=== PATIENT | male | born 1990 ===

== ENCOUNTER → 2023-02-23 10:21 | Outpatient (CLI) | payer OTHER, SELFPAY ==
--- NOTE | ~2023-02-23 | CT_ITS ---
EXAMINATION: CT abdomen pelvis w con INDICATION: Abdominal pain TECHNIQUE: Computed tomographic images of the abdomen and pelvis were obtained after the administrati on of 100 cc of Omnipaque 350 intravenous contrast. The dose-length product (DLP) was 544.31 mGy-cm. Automated exposure control and iterative reconstruction technique were employed. COMPARISON: None available FINDINGS: The lung bases are clear. There is a trace left pleural effusion. The heart size is normal. The liver, spleen, pancreas, gallbladder, and adrenal glands are normal. The kidneys are unremarkabl e. No pathologically enlarged abdominal or pelvic lymph nodes are identified. No pathologically enlar ged abdominal or pelvic lymph nodes are identified. No free intraperitoneal gas or evidence of bowel obstruction. The appendix is normal. There is a small volume of right lower quadrant and pelvic ascit es. There is a small umbilical hernia containing fat. IMPRESSION: 1. Small volume of right lower quadrant and pelvic ascites of unclear etiology but considered abnorma l in a male patient. 2. Trace left pleural effusion. Reviewed, dictated and finalized at location B. IMPRESSION: 1. Small volume of right lower quadrant and pelvic ascites of unclear etiology but considered abnormal in a male patient. 2. Trace left pleural effusion.
== END ==
PROVIDERS: PCP Physician Assistant Medical; Visit Provider Physician Assistant Medical
DX: R10.9 Unspecified abdominal pain (principal); K62.5 Hemorrhage of anus and rectum
CPT/HCPCS: 74177; Q9967